=== PATIENT | male | born 1975 | race Caucasian/White ===

== ENCOUNTER → 2017-10-12 12:48 | Outpatient (CLI) | payer MEDICAID, SELFPAY ==
[2017-10-12 13:22] LABS: Basophils # 0.1 K/mm3 (0-0.2); Basophils % 0.6 % (0.1-2.0); Eosinophils # 0.4 K/mm3 (0.0-0.4); Eosinophils % 3.7 % (0.1-12.0); Hematocrit 43.8 % (42.0-52.0); Hemoglobin 14.7 g/dL (14.1-18.0); Mean Corpuscular HGB Conc 33.6 g/dL (31.8-35.4); Mean Corpuscular Hemoglobin 30.8 pg (27.0-31.2); Mean Corpuscular Volume 91.5 fl (80-94); Mean Platelet Volume 7.4 fl (7.4-10.4); Monocytes # 0.4 K/mm3 (0.1-1.0); Monocytes % 3.8 % (1.7-9.3); Neutrophils # 4.8 K/mm3 (1.8-7.8); Neutrophils % 49.9 % (37.0-80.0); Platelet Count 284 K/mm3 (142-424); Red Blood Count 4.79 M/mm3 (4.60-6.20); Red Cell Distribution Width 12.2 % (11.5-17.5); White Blood Count 9.6 K/mm3 (4.8-10.8)
[2017-10-12 13:30] LABS: Alanine Aminotransferase 58 U/L (12-78); Albumin Level 3.3 gm/dL (3.4-5.0); Albumin/Globulin Ratio 0.7 (1.1-1.8); Alkaline Phosphatase 92 U/L (46-116); Aspartate Amino Transferase 36 U/L (15-37); Bilirubin,Total 0.3 mg/dL (0.2-1.0); Blood Urea Nitrogen 17 mg/dL (7-18); Calcium 8.7 mg/dL (8.5-10.1); Carbon Dioxide 27 mmol/L (21.0-32.0); Chloride 103 mmol/L (98-107); Creatinine,Serum 0.88 mg/dL (0.70-1.30); Estimated Glomerular Filt Rate 96 ml/min (>60); GFR (African American) 116 ML/MIN (>60); Globulin 4.5 gm/dl (1.3-3.2); Glucose 89 mg/dL (74-106); Sodium 138 mmol/L (136-145); Total Protein,Serum 7.8 gm/dL (6.4-8.2)
[2017-10-13 08:24] LABS: Hep A Ab, IgM Negative (Negative); Hepatitis B Core Antibody IgM Negative (Negative); Hepatitis B Surface Antigen Negative (Negative)
[2017-10-13 15:41] LABS: HIV Screen 4th Generation wRfx Non Reactive (Non Reactive); Hepatitis C Antibody <0.1 s/co ratio (0.0-0.9)
== END ==
PROVIDERS: Visit Provider Preventive Medicine Addiction Medicine
DX: Z87.898 Personal history of other specified conditions (principal); F19.21 Other psychoactive substance dependence, in remission
CPT/HCPCS: 36415; 80053; 80074; 85025; 86703; G0432

== ENCOUNTER 2021-06-10 18:35 | Emergency (ER) | payer OTHER, SELFPAY ==
[2021-06-10 18:36] VITALS: BP 140/116; PULSE 109; RESP 20; TEMP 36.8; O2SAT 98; BMI 25.8
--- NOTE | 2021-06-10 19:10 | HMH.EDGENADL ---
ED Disposition Clinical Impression: Abscess of skin or subcutaneous tissue Qualifiers: Site of cutaneous abscess: extremity Site of cutaneous abscess of extremity: lower extremity Laterality: left Qualified Code(s): L02.416 - Cutaneous abscess of left lower limb Disposition: Home, Self-Care Condition on Discharge: Good Instructions: DI for Skin Abscess Additional Instructions: Warm compresses 3-4 times per day. Antibiotics as directed. Follow with your PCP in 2 to 3 days. Prescriptions: Sulfamethoxazole/Trimethoprim [Bactrim DS tablet] 1 each PO BID #14 tab Transmission Status: Pending to [facility] Referrals: Hernando Saleh MD [Primary Care Provider] - 3 days Time of Disposition: 19:13 - Critical Care Critical Care Time: No Attestation: On 06/10/21, the high probability of a clinically significant, sudden or life threatening deterioration of the following system(s) required my full and direct attention, intervention and personal management. The time I documented below is in addition to time spent performing reported procedures but includes the following listed in this critical care notation. Medical Decision Making - Medical Records Medical records reviewed: Yes: I reviewed the patient's medical records. - Lee Inquiry Pt receiving controlled substance: No Vital Signs: 06/10/21 18:36 Temperature 98.3 F Temperature Source Oral Pulse Rate [Right Radial] 109 H Respiratory Rate 20 Blood Pressure [Right Arm] 140/116 H Blood Pressure Mean [Right Arm] 124 Blood Pressure Source [Right Arm] Automatic Cuff Blood Pressure Position [Right Arm] Sitting 02 Sat by Pulse Oximetry 98 Oxygen Delivery Method Room Air Medical Decision Narrative: 45yo M evaluated for abscess. Treated with Bactrim in the emergency department. Offered to incise and drain in the emergency department he would prefer conservative treatment with warm compresses and follow-up with his PCP office. General Adult HPI - General Chief complaint: Skin/Abscess/Foreign Body Stated complaint: possible spider bite L leg Time Seen by Provider: 06/10/21 19:00 Mode of Arrival: Ambulatory Limitations: No Limitations Description of Symptoms (Recalled from ER Triage Doc. by RN): Pt c/o spider bite to left upper thigh x3 days - History of Present Illness HPI narrative: 45yo M presents the emergency department secondary to an abscess on his left thigh. Patient reports is been present for a few days. He reports cutting it open at home and having a large amount of purulent material expressed. He reports it still red and tender. Denies any fever or systemic signs of infection. - Related Data Previous Rx's Medication Instructions Recorded Sulfamethoxazole/Trimethoprim 1 each PO BID #14 tab 06/10/21 [Bactrim DS tablet] Allergies Allergy/AdvReac Type Severity Reaction Status Date / Time CODEINE Allergy Intermediate I-HIVES Uncoded 06/30/17 15:07 PCN (PENICILLIN) Allergy Unknown Uncoded 06/30/17 15:07 [facility] History - Hepatitis A Screen Drug use history?: No High risk sexual behaviors?: No History of sexually transmitted infection?: No Currently employed?: No Childcare worker?: No Do you have indoor plumbing?: Yes Do you have electricity?: Yes Attestation statement:: This patient has been screened for Hepatitis A risk factors. I have reviewed the patient's past medical history: Yes (Denies chronic condition) ROS Obtained: Yes All systems reviewed & no additional complaints - Integumentary/Breasts Skin/Breast: Reports as per HPI Physical Exam - General General appearance: alert, in no apparent distress - Head Head exam: atraumatic - Respiratory Respiratory exam: Present: normal lung sounds bilaterally. Absent: respiratory distress - Cardiovascular Cardiovascular exam: Present: regular rate, normal rhythm. Absent: JVD - Neurological Exam Neurological exam: Present: alert, oriented X3 - Psychiatric
[2021-06-10 19:21] VITALS: BP 138/98; PULSE 102; RESP 18; TEMP 36.9; O2SAT 98
== END 2021-06-10 19:22 | disposition home or self-care (01) ==
PROVIDERS: Emergency Provider Family Medicine; PCP Emergency Medicine
DX: L02.416 Cutaneous abscess of left lower limb (principal)
CPT/HCPCS: 99281

== ENCOUNTER 2021-06-17 09:10 | Emergency (ER) | payer OTHER, SELFPAY ==
[2021-06-17 09:11] VITALS: BP 158/109; PULSE 100; RESP 16; TEMP 37.2; O2SAT 98; BMI 25.1
[2021-06-17 09:40] VITALS: BP 158/109; PULSE 100; RESP 16; TEMP 37.2; O2SAT 98; BMI 25.2
--- NOTE | 2021-06-17 10:03 | HMH.EDUTC ---
[facility] [place] Disposition Clinical Impression: Abscess of skin or subcutaneous tissue Qualifiers: Site of cutaneous abscess: unspecified site Qualified Code(s): L02.91 - Cutaneous abscess, unspecified Disposition: Home, Self-Care Condition on Discharge: Good Instructions: Clindamycin, Mupirocin, DI for Skin Abscess Additional Instructions: *Start antibiotic(s) immediately and be sure to take as ordered for the FULL length of time although you may be feeling better or start to see improvement in the next 24-48 hours *Monitor closely. Outlined redness so that you can monitor easier. Follow up immediately for new or worsening symptoms including but not limited to redness, swelling, streaking from site fever or chills. *Warm compress of warm water and epson salt 15 minutes 3-4 times day *Never squeeze or pop these on your own. Seek immediate medical attention next time this occurs *Monitor Temp. Tylenol every 4 hours as needed and ibuprofen every 6 hours as needed (as long as your primary care doctor has told you that it is ok to take both. For fever, aches, pain. ER if no less that 101 despite Tylenol and ibuprofen Follow up with your family doctor/primary care physician in the next 48-72 hours if no improvement Eating yogurt while taking this medication may help with stomach upset Follow up with your Family Doctor if you do not have one we will provide you with a list of accepting Doctors Return if needed Straight to ER if any life threatening symptoms Make sure to Follow up to get your Wound Culture results to make sure that you are on the right medication Prescriptions: clindamycin HCL [Cleocin HCl] 300 mg PO TID 7 Days #21 cap Transmission Status: Pending to [id number] Mupirocin Calcium [Mupirocin 2% Cream 15gm] 1 applicatio TP TID 10 Days #15 gm Transmission Status: Pending to [id number] Referrals: Hernando Saleh MD [Primary Care Provider] - As needed Forms: Work/School Release Time of Disposition: 10:21 Medical Decision Making - Lee Inquiry Pt receiving controlled substance: No Lee was queried for this patient: No Vital Signs: 06/17/21 09:11 06/17/21 09:40 Temperature 98.9 F 98.9 F Temperature Source Oral Oral Pulse Rate [Radial] 100 H 100 H Respiratory Rate 16 16 Blood Pressure [Right Arm] 158/109 H 158/109 H Blood Pressure Mean [Right Arm] 125 125 Blood Pressure Source [Right Arm] Automatic Cuff Blood Pressure Position [Right Arm] Sitting 02 Sat by Pulse Oximetry 98 98 Oxygen Delivery Method Room Air Room Air Orders (Tests/Meds): ORDERS Category Date Time Status Wound Culture and Gram Stain Stat Micro 06/17/21 10:13 Ordered [facility] [place] HPI - General Stated complaint: spider bite left leg Time Seen by Provider: 06/17/21 10:03 Mode of Arrival: Ambulatory Source of Information: Patient Limitations: No Limitations Description of Symptoms (Recalled from Triage Doc. by RN): PATIENT C/O ABSCESS TO LT UPPER LEG PT STATES SEEN LAST WEEK AND GIVEN SCRIPT FOR ANTIBIOTICS PT STATES HE DID NOT FINISH COURSE BECAUSE THEY MADE HIM NAUSEATED. PT STATES SYMPTOMS HAVE IMPROVED BUT CONTINUES WITH REDNESS AND PAIN. PT ALSO STATES HE HAS NOT TAKEN HIS AM MEDS.PT DENIES ANY OTHER C/O HEENT Symptoms (Recalled from RN notes): No Resp Symptoms (Recalled from RN notes): No Skin Symptoms (Recalled from RN notes): Yes MS Symptoms (Recalled from RN notes): No Functional Status (Recalled from RN notes): WNL - History of Present Illness Provider Complaint: Patient states that he was seen last week in the ED for same complaint States that he was started on antibiotics and they have helped but he hasnt been taking them the way he should because they was tearing up his stomach States that today he came back in because it was still sore and hurting and redness is starting to get worse again so he knew he needed something else to help - Related Data Home Medications Medication Instructions Recorded Confirmed
[2021-06-17 10:26] VITALS: BP 158/109; PULSE 100; RESP 16; TEMP 37.2; O2SAT 98
== END 2021-06-17 10:29 | disposition home or self-care (01) ==
LOC: ER 09:26 → UTC 09:27
PROVIDERS: Emergency Provider Nurse Practitioner; PCP Emergency Medicine
DX: S70.362A Insect bite (nonvenomous), left thigh, initial encounter (principal); L03.116 Cellulitis of left lower limb
CPT/HCPCS: 87070; 87077; 87186; 87205; 99202; G0463

== ENCOUNTER → 2021-08-12 14:55 | Outpatient (CLI) | payer OTHER, SELFPAY ==
[2021-08-12 15:13] LABS: Alanine Aminotransferase 31 U/L (12-78); Albumin/Globulin Ratio 1.6 (1.1-1.8); Alkaline Phosphatase 92 U/L (38-126); Anion Gap 16.8 mEq/L (5-15); Aspartate Amino Transferase 38 U/L (17-59); Basophils # 0.1 K/mm3 (0-0.2); Basophils % 1.6 % (0.1-2.0); Bilirubin,Total 0.6 mg/dl (0.2-1.3); Blood Urea Nitrogen 16 mg/dl (9-20); Calcium 10.1 mg/dl (8.4-10.2); Carbon Dioxide 25 mmol/L (22.0-30.0); Chloride 105 mmol/L (98-107); Cholesterol 169 mg/dl (140-200); Eosinophils # 0.3 K/mm3 (0.0-0.4); Eosinophils % 4.3 % (0.1-12.0); Estimated Glomerular Filt Rate 92 ml/min (>60); GFR (African American) 111 ML/MIN (>60); Globulin 3.2 g/dL (1.3-3.2); Glucose 109 mg/dl (74-100); HDL Cholesterol 42 mg/dl (40-60); Hematocrit 56.3 % (42.0-52.0); Lymphocytes # 2.4 K/mm3 (0.7-4.5); Lymphocytes % 34.3 % (10-50); Mean Corpuscular HGB Conc 32.6 g/dL (31.8-35.4); Mean Corpuscular Hemoglobin 30.9 pg (27.0-31.2); Mean Corpuscular Volume 94.5 fl (80-94); Mean Platelet Volume 9.4 fl (7.4-10.4); Monocytes # 0.5 K/mm3 (0.1-1.0); Monocytes % 6.8 % (1.7-9.3); Neutrophils # 3.8 K/mm3 (1.8-7.8); Platelet Count 364 K/mm3 (142-424); Potassium 3.8 mmoL/L (3.5-5.1); Red Blood Count 5.95 M/mm3 (4.60-6.20); Red Cell Distribution Width 13.1 % (11.5-17.5); Sodium 143 mmol/L (136-145); Total Protein,Serum 8.2 g/dl (6.3-8.2); Triglycerides 159 mg/dl (30-150); VLDL Cholesterol 32 mg/dL (0-40); White Blood Count 7.1 K/mm3 (4.8-10.8)
[2021-08-12 15:24] LABS: Direct LDL Cholesterol 101.51 mg/dL (100-129)
[2021-08-12 15:30] LABS: Free T4 (Free Thyroxine) 1.19 ng/dl (0.78-2.19)
[2021-08-12 15:31] LABS: 25-OH Vitamin D, Total 47.6 ng/mL (30-100)
[2021-08-12 15:42] LABS: Amphetamine/Metha Screen,Urine Positive ng/ml (<1000)
[2021-08-12 15:43] LABS: Barbiturates Screen,Urine Negative ng/ml (<200)
[2021-08-12 15:44] LABS: Benzodiazepines Screen,Urine Negative ng/ml (<200); Cannabinoid Screen,Urine Negative ng/ml (<50)
[2021-08-12 15:45] LABS: Cocaine Screen,Urine Negative ng/ml (<300); Methadone Screen,Urine Negative ng/ml (<300)
[2021-08-12 15:46] LABS: Opiate Screen,Urine Negative ng/ml (<300); Thyroid Stimulating Hormone 0.71 uIU/mL (0.465-4.68)
[2021-08-12 15:47] LABS: Phencyclidine Screen,Urine Negative ng/ml (<25)
[2021-08-12 17:15] LABS: Hemoglobin 18.4 g/dL (14.1-18.0)
== END ==
PROVIDERS: Visit Provider Emergency Medicine
DX: I10 Essential (primary) hypertension (principal); F90.9 Attention-deficit hyperactivity disorder, unspecified type; E55.9 Vitamin D deficiency, unspecified
CPT/HCPCS: 80053; 80061; 80305; 82306; 84439; 84443; 85025; 87522; 87902

== ENCOUNTER → 2021-08-20 16:11 | Outpatient (CLI) | payer OTHER, SELFPAY | PROVIDERS: Visit Provider Nurse Practitioner | DX: Z20.822 Contact with and (suspected) exposure to COVID-19 (principal) | CPT/HCPCS: C9803; U0003; U0005 ==

== ENCOUNTER → 2021-09-09 16:00 | Outpatient (CLI) | payer OTHER, SELFPAY ==
[2021-09-09 14:46] LABS: Barbiturates Screen,Urine Negative ng/ml (<200)
[2021-09-09 14:47] LABS: Benzodiazepines Screen,Urine Negative ng/ml (<200)
[2021-09-09 14:48] LABS: Cannabinoid Screen,Urine Negative ng/ml (<50); Cocaine Screen,Urine Negative ng/ml (<300)
[2021-09-09 14:49] LABS: Methadone Screen,Urine Negative ng/ml (<300)
[2021-09-09 14:51] LABS: Opiate Screen,Urine Negative ng/ml (<300)
[2021-09-09 14:52] LABS: Phencyclidine Screen,Urine Negative ng/ml (<25)
[2021-09-09 15:04] LABS: Amphetamine/Metha Screen,Urine Positive ng/ml (<1000)
== END ==
PROVIDERS: Visit Provider Emergency Medicine
DX: Z79.899 Other long term (current) drug therapy (principal)
CPT/HCPCS: 80305

== ENCOUNTER → 2021-11-18 11:40 | Outpatient (CLI) | payer OTHER, SELFPAY ==
[2021-11-18 13:39] LABS: Barbiturates Screen,Urine Negative ng/ml (<200); Benzodiazepines Screen,Urine Negative ng/ml (<200)
[2021-11-18 13:40] LABS: Amphetamine/Metha Screen,Urine Positive ng/ml (<1000); Methadone Screen,Urine Negative ng/ml (<300)
[2021-11-18 13:41] LABS: Cannabinoid Screen,Urine Negative ng/ml (<50)
[2021-11-18 13:42] LABS: Cocaine Screen,Urine Negative ng/ml (<300); Opiate Screen,Urine Negative ng/ml (<300)
[2021-11-18 13:43] LABS: Phencyclidine Screen,Urine Negative ng/ml (<25)
== END ==
PROVIDERS: PCP Emergency Medicine; Visit Provider Emergency Medicine
DX: I10 Essential (primary) hypertension (principal); F90.9 Attention-deficit hyperactivity disorder, unspecified type; L02.91 Cutaneous abscess, unspecified; M79.604 Pain in right leg
CPT/HCPCS: 80305; 87070; 87077; 87186; 87205

== ENCOUNTER → 2021-11-20 15:46 | Outpatient (CLI) | payer OTHER, SELFPAY ==
--- NOTE | 2021-11-20 15:54 | XR_ITS ---
FINAL REPORT CLINICAL HISTORY: leg pain. no recent trauma FINDINGS: RIGHT TIBIA FIBULA 2 views were obtained. There is no acute fracture or dislocation. There are chronic fractures of the tibia and fibula with an intramedullary trisha in the tibia. The visualized joint spaces are intact. There is no soft tissue abnormality. IMPRESSION: No acute bony abnormality. Reviewed, Interpreted and Dictated by Espinoza Angulo III, MD Transcribed by Yelena Garcia Authenticated by Espinoza Angulo III, MD on 11/20/2021 04:36:53 PM [facility]
== END ==
PROVIDERS: PCP Family Medicine; Visit Provider Emergency Medicine
DX: M79.604 Pain in right leg (principal)
CPT/HCPCS: 73590

== ENCOUNTER → 2022-01-15 13:54 | Outpatient (CLI) | payer OTHER, SELFPAY ==
[2022-01-15 13:29] LABS: Benzodiazepines Screen,Urine Negative ng/ml (<200)
[2022-01-15 13:30] LABS: Amphetamine/Metha Screen,Urine Positive ng/ml (<1000)
[2022-01-15 13:31] LABS: Barbiturates Screen,Urine Negative ng/ml (<200); Cannabinoid Screen,Urine Positive ng/ml (<50)
[2022-01-15 13:32] LABS: Cocaine Screen,Urine Negative ng/ml (<300)
[2022-01-15 13:33] LABS: Methadone Screen,Urine Negative ng/ml (<300); Opiate Screen,Urine Negative ng/ml (<300)
[2022-01-15 13:34] LABS: Phencyclidine Screen,Urine Negative ng/ml (<25)
== END ==
PROVIDERS: PCP Emergency Medicine; Visit Provider Emergency Medicine
DX: Z79.899 Other long term (current) drug therapy (principal)
CPT/HCPCS: 80305

== ENCOUNTER → 2022-01-25 08:24 | Outpatient (CLI) | payer OTHER, SELFPAY ==
[2022-01-24 18:46] LABS: Amphetamine/Metha Screen,Urine Negative ng/ml (<1000)
[2022-01-24 18:47] LABS: Barbiturates Screen,Urine Negative ng/ml (<200); Benzodiazepines Screen,Urine Negative ng/ml (<200)
[2022-01-24 18:48] LABS: Cannabinoid Screen,Urine Negative ng/ml (<50)
[2022-01-24 18:49] LABS: Cocaine Screen,Urine Negative ng/ml (<300); Methadone Screen,Urine Negative ng/ml (<300)
[2022-01-24 18:51] LABS: Opiate Screen,Urine Negative ng/ml (<300)
[2022-01-24 18:52] LABS: Phencyclidine Screen,Urine Negative ng/ml (<25)
== END ==
PROVIDERS: PCP Emergency Medicine; Visit Provider Emergency Medicine
DX: R82.5 Elevated urine levels of drugs, medicaments and biological substances (principal)
CPT/HCPCS: 80305

== ENCOUNTER → 2022-02-01 12:23 | Outpatient (CLI) | payer OTHER, SELFPAY ==
[2022-01-31 17:51] LABS: Barbiturates Screen,Urine Negative ng/ml (<200)
[2022-01-31 17:52] LABS: Amphetamine/Metha Screen,Urine Negative ng/ml (<1000); Benzodiazepines Screen,Urine Negative ng/ml (<200)
[2022-01-31 17:53] LABS: Methadone Screen,Urine Negative ng/ml (<300)
[2022-01-31 17:54] LABS: Cannabinoid Screen,Urine Negative ng/ml (<50); Cocaine Screen,Urine Negative ng/ml (<300)
[2022-01-31 17:55] LABS: Opiate Screen,Urine Negative ng/ml (<300); Phencyclidine Screen,Urine Negative ng/ml (<25)
== END ==
PROVIDERS: PCP Emergency Medicine; Visit Provider Emergency Medicine
DX: F90.9 Attention-deficit hyperactivity disorder, unspecified type (principal); Z79.899 Other long term (current) drug therapy
CPT/HCPCS: 80305

== ENCOUNTER → 2022-02-14 13:49 | Outpatient (CLI) | payer OTHER, SELFPAY ==
[2022-02-17 12:33] LABS: Amphetamine/Metha Screen,Urine Negative ng/ml (<1000); Benzodiazepines Screen,Urine Negative ng/ml (<200)
[2022-02-17 12:34] LABS: Barbiturates Screen,Urine Negative ng/ml (<200); Cannabinoid Screen,Urine Negative ng/ml (<50)
[2022-02-17 12:35] LABS: Cocaine Screen,Urine Negative ng/ml (<300)
[2022-02-17 12:36] LABS: Methadone Screen,Urine Negative ng/ml (<300); Opiate Screen,Urine Negative ng/ml (<300)
[2022-02-17 12:37] LABS: Phencyclidine Screen,Urine Negative ng/ml (<25)
== END ==
PROVIDERS: PCP Emergency Medicine; Visit Provider Nurse Practitioner Family
DX: F11.20 Opioid dependence, uncomplicated (principal)
CPT/HCPCS: 80305

== ENCOUNTER → 2022-02-21 13:51 | Outpatient (CLI) | payer OTHER, SELFPAY ==
[2022-02-21 16:26] LABS: Amphetamine/Metha Screen,Urine Negative ng/ml (<1000)
[2022-02-21 16:27] LABS: Barbiturates Screen,Urine Negative ng/ml (<200); Benzodiazepines Screen,Urine Negative ng/ml (<200)
[2022-02-21 16:28] LABS: Cannabinoid Screen,Urine Negative ng/ml (<50)
[2022-02-21 16:29] LABS: Cocaine Screen,Urine Negative ng/ml (<300); Methadone Screen,Urine Negative ng/ml (<300)
[2022-02-21 16:30] LABS: Opiate Screen,Urine Negative ng/ml (<300); Phencyclidine Screen,Urine Negative ng/ml (<25)
== END ==
PROVIDERS: Nurse Practitioner Family; PCP Emergency Medicine; Visit Provider Nurse Practitioner Family
DX: F11.20 Opioid dependence, uncomplicated (principal); F12.10 Cannabis abuse, uncomplicated; B19.20 Unspecified viral hepatitis C without hepatic coma; I10 Essential (primary) hypertension; F90.9 Attention-deficit hyperactivity disorder, unspecified type; Z87.820 Personal history of traumatic brain injury
CPT/HCPCS: 80305

== ENCOUNTER → 2022-03-01 10:01 | Outpatient (CLI) | payer OTHER, SELFPAY ==
[2022-03-01 10:30] LABS: Barbiturates Screen,Urine Negative ng/ml (<200)
[2022-03-01 10:31] LABS: Benzodiazepines Screen,Urine Negative ng/ml (<200)
[2022-03-01 10:32] LABS: Amphetamine/Metha Screen,Urine Negative ng/ml (<1000); Methadone Screen,Urine Negative ng/ml (<300)
[2022-03-01 10:33] LABS: Cannabinoid Screen,Urine Negative ng/ml (<50)
[2022-03-01 10:34] LABS: Cocaine Screen,Urine Negative ng/ml (<300); Opiate Screen,Urine Negative ng/ml (<300)
[2022-03-01 10:35] LABS: Phencyclidine Screen,Urine Negative ng/ml (<25)
== END ==
PROVIDERS: PCP Emergency Medicine; Visit Provider Nurse Practitioner Family
DX: F11.20 Opioid dependence, uncomplicated (principal)
CPT/HCPCS: 80305

== ENCOUNTER → 2022-03-08 11:36 | Outpatient (CLI) | payer OTHER, SELFPAY ==
[2022-03-08 12:22] LABS: Barbiturates Screen,Urine Negative ng/ml (<200)
[2022-03-08 12:23] LABS: Benzodiazepines Screen,Urine Negative ng/ml (<200)
[2022-03-08 12:24] LABS: Amphetamine/Metha Screen,Urine Positive ng/ml (<1000); Cannabinoid Screen,Urine Negative ng/ml (<50)
[2022-03-08 12:25] LABS: Cocaine Screen,Urine Positive ng/ml (<300)
[2022-03-08 12:26] LABS: Methadone Screen,Urine Negative ng/ml (<300); Opiate Screen,Urine Negative ng/ml (<300)
[2022-03-08 12:27] LABS: Phencyclidine Screen,Urine Negative ng/ml (<25)
== END ==
PROVIDERS: PCP Emergency Medicine; Visit Provider Nurse Practitioner Family
DX: F12.10 Cannabis abuse, uncomplicated (principal); B19.20 Unspecified viral hepatitis C without hepatic coma; I10 Essential (primary) hypertension; F90.9 Attention-deficit hyperactivity disorder, unspecified type; Z87.820 Personal history of traumatic brain injury
CPT/HCPCS: 80305

== ENCOUNTER → 2022-03-15 11:30 | Outpatient (CLI) | payer OTHER, SELFPAY ==
[2022-03-15 12:03] LABS: Amphetamine/Metha Screen,Urine Negative ng/ml (<1000); Barbiturates Screen,Urine Negative ng/ml (<200)
[2022-03-15 12:04] LABS: Benzodiazepines Screen,Urine Negative ng/ml (<200)
[2022-03-15 12:05] LABS: Cannabinoid Screen,Urine Positive ng/ml (<50); Cocaine Screen,Urine Negative ng/ml (<300)
[2022-03-15 12:06] LABS: Methadone Screen,Urine Negative ng/ml (<300)
[2022-03-15 12:07] LABS: Opiate Screen,Urine Negative ng/ml (<300); Phencyclidine Screen,Urine Negative ng/ml (<25)
== END ==
PROVIDERS: PCP Emergency Medicine; Visit Provider Nurse Practitioner Family
DX: F12.20 Cannabis dependence, uncomplicated (principal)
CPT/HCPCS: 80305

== ENCOUNTER → 2022-03-26 10:10 | Outpatient (CLI) | payer OTHER, SELFPAY | PROVIDERS: PCP Emergency Medicine; Visit Provider Nurse Practitioner Family | DX: F11.20 Opioid dependence, uncomplicated (principal) ==

== ENCOUNTER → 2022-05-16 08:50 | Outpatient (CLI) | payer OTHER, SELFPAY ==
[2022-05-16 10:32] LABS: Amphetamine/Metha Screen,Urine Negative ng/ml (<1000)
[2022-05-16 10:33] LABS: Barbiturates Screen,Urine Negative ng/ml (<200); Benzodiazepines Screen,Urine Negative ng/ml (<200)
[2022-05-16 10:35] LABS: Cannabinoid Screen,Urine Negative ng/ml (<50)
[2022-05-16 10:36] LABS: Cocaine Screen,Urine Negative ng/ml (<300)
[2022-05-16 10:37] LABS: Methadone Screen,Urine Negative ng/ml (<300); Opiate Screen,Urine Negative ng/ml (<300)
[2022-05-16 10:38] LABS: Phencyclidine Screen,Urine Negative ng/ml (<25)
== END ==
PROVIDERS: PCP Emergency Medicine; Visit Provider Nurse Practitioner Family
DX: F11.20 Opioid dependence, uncomplicated (principal); F12.10 Cannabis abuse, uncomplicated
CPT/HCPCS: 80305

== ENCOUNTER → 2022-05-23 12:36 | Outpatient (CLI) | payer OTHER, SELFPAY ==
[2022-05-23 13:14] LABS: Amphetamine/Metha Screen,Urine Negative ng/ml (<1000)
[2022-05-23 13:15] LABS: Barbiturates Screen,Urine Negative ng/ml (<200); Benzodiazepines Screen,Urine Negative ng/ml (<200)
[2022-05-23 13:16] LABS: Cannabinoid Screen,Urine Negative ng/ml (<50); Cocaine Screen,Urine Negative ng/ml (<300)
[2022-05-23 13:17] LABS: Methadone Screen,Urine Negative ng/ml (<300)
[2022-05-23 13:18] LABS: Opiate Screen,Urine Negative ng/ml (<300); Phencyclidine Screen,Urine Negative ng/ml (<25)
== END ==
PROVIDERS: PCP Emergency Medicine; Visit Provider Nurse Practitioner Family
DX: F12.10 Cannabis abuse, uncomplicated (principal)
CPT/HCPCS: 80305

== ENCOUNTER → 2022-06-02 11:35 | Outpatient (CLI) | payer OTHER, SELFPAY ==
[2022-06-02 12:49] LABS: Benzodiazepines Screen,Urine Negative ng/ml (<200)
[2022-06-02 12:50] LABS: Barbiturates Screen,Urine Negative ng/ml (<200)
[2022-06-02 12:51] LABS: Cannabinoid Screen,Urine Negative ng/ml (<50); Methadone Screen,Urine Negative ng/ml (<300)
[2022-06-02 12:52] LABS: Cocaine Screen,Urine Negative ng/ml (<300)
[2022-06-02 12:53] LABS: Opiate Screen,Urine Negative ng/ml (<300); Phencyclidine Screen,Urine Negative ng/ml (<25)
[2022-06-12 12:49] LABS: Amphetamine Positive (.); Amphetamine (GC/MS) >3000 ng/mL (Cutoff=500); Amphetamines Positive (.); Methamphetamine Positive (.); Methamphetamine (GC/MS) >3000 ng/mL (Cutoff=500)
== END ==
PROVIDERS: PCP Emergency Medicine; Visit Provider Nurse Practitioner Family
DX: F11.20 Opioid dependence, uncomplicated (principal)
CPT/HCPCS: 80305; 80324

== ENCOUNTER → 2022-06-09 17:07 | Outpatient (CLI) | payer OTHER, SELFPAY ==
[2022-06-09 18:33] LABS: Amphetamine/Metha Screen,Urine Positive ng/ml (<1000); Barbiturates Screen,Urine Negative ng/ml (<200)
[2022-06-09 18:34] LABS: Benzodiazepines Screen,Urine Negative ng/ml (<200)
[2022-06-09 18:35] LABS: Cannabinoid Screen,Urine Negative ng/ml (<50); Cocaine Screen,Urine Negative ng/ml (<300)
[2022-06-09 18:36] LABS: Methadone Screen,Urine Negative ng/ml (<300); Opiate Screen,Urine Negative ng/ml (<300)
[2022-06-09 18:37] LABS: Phencyclidine Screen,Urine Negative ng/ml (<25)
== END ==
PROVIDERS: Nurse Practitioner Family; PCP Emergency Medicine; Visit Provider Nurse Practitioner Family
DX: F12.10 Cannabis abuse, uncomplicated (principal)
CPT/HCPCS: 80305

== ENCOUNTER → 2022-06-16 13:40 | Outpatient (CLI) | payer OTHER, SELFPAY ==
[2022-06-16 15:01] LABS: Amphetamine/Metha Screen,Urine Positive ng/ml (<1000); Barbiturates Screen,Urine Negative ng/ml (<200)
[2022-06-16 15:02] LABS: Benzodiazepines Screen,Urine Negative ng/ml (<200)
[2022-06-16 15:03] LABS: Cannabinoid Screen,Urine Negative ng/ml (<50); Cocaine Screen,Urine Negative ng/ml (<300)
[2022-06-16 15:04] LABS: Methadone Screen,Urine Negative ng/ml (<300); Opiate Screen,Urine Negative ng/ml (<300)
[2022-06-16 15:05] LABS: Phencyclidine Screen,Urine Negative ng/ml (<25)
== END ==
PROVIDERS: Nurse Practitioner Family; PCP Emergency Medicine; Visit Provider Nurse Practitioner Family
DX: F11.20 Opioid dependence, uncomplicated (principal); F12.10 Cannabis abuse, uncomplicated
CPT/HCPCS: 80305

== ENCOUNTER → 2022-06-28 12:51 | Outpatient (CLI) | payer OTHER, SELFPAY ==
[2022-06-28 13:48] LABS: Amphetamine/Metha Screen,Urine Positive ng/ml (<1000)
[2022-06-28 13:49] LABS: Barbiturates Screen,Urine Negative ng/ml (<200)
[2022-06-28 13:50] LABS: Benzodiazepines Screen,Urine Negative ng/ml (<200); Cannabinoid Screen,Urine Negative ng/ml (<50)
[2022-06-28 13:53] LABS: Phencyclidine Screen,Urine Negative ng/ml (<25)
[2022-06-28 14:37] LABS: Methadone Screen,Urine Negative ng/ml (<300)
[2022-06-28 14:38] LABS: Opiate Screen,Urine Negative ng/ml (<300)
[2022-06-28 17:14] LABS: Cocaine Screen,Urine Negative ng/ml (<300)
== END ==
PROVIDERS: PCP Emergency Medicine; Visit Provider Nurse Practitioner Family
DX: F11.20 Opioid dependence, uncomplicated (principal); F12.10 Cannabis abuse, uncomplicated; F90.9 Attention-deficit hyperactivity disorder, unspecified type; B19.20 Unspecified viral hepatitis C without hepatic coma; I10 Essential (primary) hypertension; Z87.820 Personal history of traumatic brain injury
CPT/HCPCS: 80305

== ENCOUNTER → 2022-07-08 12:22 | Outpatient (CLI) | payer OTHER, SELFPAY ==
[2022-07-08 13:18] LABS: Barbiturates Screen,Urine Negative ng/ml (<200); Benzodiazepines Screen,Urine Negative ng/ml (<200)
[2022-07-08 13:19] LABS: Amphetamine/Metha Screen,Urine Positive ng/ml (<1000)
[2022-07-08 13:20] LABS: Cannabinoid Screen,Urine Negative ng/ml (<50); Methadone Screen,Urine Negative ng/ml (<300)
[2022-07-08 13:21] LABS: Cocaine Screen,Urine Negative ng/ml (<300)
[2022-07-08 13:22] LABS: Opiate Screen,Urine Negative ng/ml (<300)
[2022-07-08 13:23] LABS: Phencyclidine Screen,Urine Negative ng/ml (<25)
== END ==
PROVIDERS: PCP Emergency Medicine; Visit Provider Nurse Practitioner Family
DX: F11.20 Opioid dependence, uncomplicated (principal); F12.10 Cannabis abuse, uncomplicated
CPT/HCPCS: 80305

== ENCOUNTER → 2022-07-19 12:53 | Outpatient (CLI) | payer OTHER, SELFPAY ==
[2022-07-19 14:59] LABS: Barbiturates Screen,Urine Negative ng/ml (<200); Benzodiazepines Screen,Urine Negative ng/ml (<200)
[2022-07-19 15:00] LABS: Amphetamine/Metha Screen,Urine Negative ng/ml (<1000)
[2022-07-19 15:01] LABS: Cannabinoid Screen,Urine Negative ng/ml (<50); Cocaine Screen,Urine Negative ng/ml (<300)
[2022-07-19 15:02] LABS: Methadone Screen,Urine Negative ng/ml (<300)
[2022-07-19 15:03] LABS: Opiate Screen,Urine Negative ng/ml (<300); Phencyclidine Screen,Urine Negative ng/ml (<25)
== END ==
PROVIDERS: PCP Emergency Medicine; Visit Provider Nurse Practitioner Family
DX: F11.20 Opioid dependence, uncomplicated (principal); F12.10 Cannabis abuse, uncomplicated
CPT/HCPCS: 80305

== ENCOUNTER → 2022-07-31 15:06 | Outpatient (CLI) | payer OTHER, SELFPAY ==
[2022-07-31 15:51] LABS: Barbiturates Screen,Urine Negative ng/ml (<200)
[2022-07-31 15:52] LABS: Amphetamine/Metha Screen,Urine Negative ng/ml (<1000); Benzodiazepines Screen,Urine Negative ng/ml (<200)
[2022-07-31 15:53] LABS: Cannabinoid Screen,Urine Negative ng/ml (<50); Methadone Screen,Urine Negative ng/ml (<300)
[2022-07-31 15:54] LABS: Cocaine Screen,Urine Negative ng/ml (<300)
[2022-07-31 15:55] LABS: Opiate Screen,Urine Negative ng/ml (<300); Phencyclidine Screen,Urine Negative ng/ml (<25)
== END ==
PROVIDERS: Nurse Practitioner Family; PCP Emergency Medicine; Visit Provider Nurse Practitioner Family
DX: F11.20 Opioid dependence, uncomplicated (principal); F12.10 Cannabis abuse, uncomplicated
CPT/HCPCS: 80305

== ENCOUNTER → 2022-08-15 14:42 | Outpatient (CLI) | payer OTHER, SELFPAY ==
[2022-08-15 16:54] LABS: Barbiturates Screen,Urine Negative ng/ml (<200); Benzodiazepines Screen,Urine Negative ng/ml (<200)
[2022-08-15 16:57] LABS: Cannabinoid Screen,Urine Negative ng/ml (<50)
[2022-08-15 16:58] LABS: Cocaine Screen,Urine Negative ng/ml (<300)
[2022-08-15 16:59] LABS: Methadone Screen,Urine Negative ng/ml (<300); Opiate Screen,Urine Negative ng/ml (<300)
[2022-08-15 17:00] LABS: Phencyclidine Screen,Urine Negative ng/ml (<25)
[2022-08-25 13:23] LABS: Amphetamine Positive (.); Amphetamine (GC/MS) >3000 ng/mL (Cutoff=500); Amphetamines Positive (.); Methamphetamine Negative (Cutoff=500)
== END ==
PROVIDERS: PCP Emergency Medicine; Visit Provider Nurse Practitioner Family
DX: F11.20 Opioid dependence, uncomplicated (principal)
CPT/HCPCS: 80305; 80324

== ENCOUNTER → 2022-08-23 12:52 | Outpatient (CLI) | payer OTHER, SELFPAY ==
[2022-08-23 13:50] LABS: Amphetamine/Metha Screen,Urine Positive ng/ml (<1000); Barbiturates Screen,Urine Negative ng/ml (<200); Benzodiazepines Screen,Urine Negative ng/ml (<200); Cannabinoid Screen,Urine Negative ng/ml (<50); Cocaine Screen,Urine Negative ng/ml (<300); Methadone Screen,Urine Negative ng/ml (<300); Opiate Screen,Urine Negative ng/ml (<300); Phencyclidine Screen,Urine Negative ng/ml (<25)
== END ==
PROVIDERS: PCP Emergency Medicine; Visit Provider Nurse Practitioner Family
DX: F11.20 Opioid dependence, uncomplicated (principal); F12.10 Cannabis abuse, uncomplicated; B19.20 Unspecified viral hepatitis C without hepatic coma; I10 Essential (primary) hypertension; F90.9 Attention-deficit hyperactivity disorder, unspecified type; Z87.820 Personal history of traumatic brain injury
CPT/HCPCS: 80305

== ENCOUNTER → 2022-09-01 12:01 | Outpatient (CLI) | payer OTHER, SELFPAY ==
[2022-09-01 13:08] LABS: Amphetamine/Metha Screen,Urine Positive ng/ml (<1000); Barbiturates Screen,Urine Negative ng/ml (<200)
[2022-09-01 13:09] LABS: Benzodiazepines Screen,Urine Negative ng/ml (<200)
[2022-09-01 13:10] LABS: Cannabinoid Screen,Urine Negative ng/ml (<50)
[2022-09-01 13:11] LABS: Cocaine Screen,Urine Negative ng/ml (<300)
[2022-09-01 13:12] LABS: Methadone Screen,Urine Negative ng/ml (<300); Opiate Screen,Urine Negative ng/ml (<300)
[2022-09-01 13:13] LABS: Phencyclidine Screen,Urine Negative ng/ml (<25)
== END ==
PROVIDERS: PCP Emergency Medicine; Visit Provider Nurse Practitioner Family
DX: F11.20 Opioid dependence, uncomplicated (principal); F12.10 Cannabis abuse, uncomplicated; B19.20 Unspecified viral hepatitis C without hepatic coma; I10 Essential (primary) hypertension; F90.9 Attention-deficit hyperactivity disorder, unspecified type; Z87.820 Personal history of traumatic brain injury
CPT/HCPCS: 80305

== ENCOUNTER → 2022-09-12 23:34 | Outpatient (CLI) | payer OTHER, SELFPAY ==
[2022-09-12 19:11] LABS: Barbiturates Screen,Urine Negative ng/ml (<200)
[2022-09-12 19:13] LABS: Benzodiazepines Screen,Urine Negative ng/ml (<200); Cannabinoid Screen,Urine Negative ng/ml (<50)
[2022-09-12 19:14] LABS: Cocaine Screen,Urine Positive ng/ml (<300)
[2022-09-12 19:15] LABS: Methadone Screen,Urine Negative ng/ml (<300); Opiate Screen,Urine Negative ng/ml (<300)
[2022-09-12 19:16] LABS: Phencyclidine Screen,Urine Negative ng/ml (<25)
[2022-09-21 16:08] LABS: Amphetamine Positive (.); Amphetamine (GC/MS) 1680 ng/mL (Cutoff=500); Amphetamines Positive (.); Methamphetamine Positive (.); Methamphetamine (GC/MS) >3000 ng/mL (Cutoff=500)
== END ==
PROVIDERS: PCP Emergency Medicine; Visit Provider Emergency Medicine
DX: Z79.899 Other long term (current) drug therapy (principal)
CPT/HCPCS: 80305; 80324

== ENCOUNTER → 2023-01-06 13:30 | Outpatient (CLI) | payer OTHER, SELFPAY ==
[2023-01-06 18:38] LABS: Basophils # 0.1 K/mm3 (0-0.2); Basophils % 0.6 % (0.1-2.0); Eosinophils # 0.5 K/mm3 (0.0-0.4); Eosinophils % 6.5 % (0.1-12.0); Hematocrit 51.1 % (42.0-52.0); Hemoglobin 16.7 g/dL (14.1-18.0); Lymphocytes # 2.8 K/mm3 (0.7-4.5); Lymphocytes % 33.3 % (10-50); Mean Corpuscular HGB Conc 32.6 g/dL (31.8-35.4); Mean Corpuscular Volume 95.1 fl (80-94); Mean Platelet Volume 9.4 fl (7.4-10.4); Monocytes # 0.5 K/mm3 (0.1-1.0); Monocytes % 5.7 % (1.7-9.3); Neutrophils # 4.5 K/mm3 (1.8-7.8); Neutrophils % 53.9 % (37.0-80.0); Platelet Count 348 K/mm3 (142-424); Red Blood Count 5.38 M/mm3 (4.60-6.20); Red Cell Distribution Width 12.7 % (11.5-17.5); White Blood Count 8.3 K/mm3 (4.8-10.8)
[2023-01-06 18:47] LABS: Alanine Aminotransferase 33 U/L (12-78); Albumin Level 4.5 g/dl (3.5-5.0); Albumin/Globulin Ratio 1.6 (1.1-1.8); Alkaline Phosphatase 102 U/L (38-126); Anion Gap 17.9 mEq/L (5-15); Aspartate Amino Transferase 46 U/L (17-59); Bilirubin,Total 0.8 mg/dl (0.2-1.3); Blood Urea Nitrogen 17 mg/dl (9-20); Calcium 8.8 mg/dl (8.4-10.2); Carbon Dioxide 25 mmol/L (22.0-30.0); Chloride 102 mmol/L (98-107); Chol/HDL Ratio 3.2 (1-3.5); Cholesterol 156 mg/dl (140-200); Estimated Glomerular Filt Rate 81 ml/min (>60); GFR (African American) 98 ML/MIN (>60); Globulin 2.9 g/dL (1.3-3.2); Glucose 121 mg/dl (74-100); HDL Cholesterol 49 mg/dl (40-60); Potassium 3.9 mmoL/L (3.5-5.1); Sodium 141 mmol/L (136-145); Total Protein,Serum 7.4 g/dl (6.3-8.2); Triglycerides 173 mg/dl (30-150); VLDL Cholesterol 35 mg/dL (0-40)
[2023-01-06 19:07] LABS: T4 (Thyroxine) 5.1 ug/dl (5.53-11.0)
[2023-01-06 19:08] LABS: 25-OH Vitamin D, Total 60.3 ng/mL (30-100)
[2023-01-06 20:28] LABS: Amphetamine/Metha Screen,Urine Negative ng/ml (<1000)
[2023-01-06 20:29] LABS: Barbiturates Screen,Urine Negative ng/ml (<200)
[2023-01-06 20:30] LABS: Benzodiazepines Screen,Urine Negative ng/ml (<200)
[2023-01-06 20:32] LABS: Cannabinoid Screen,Urine Negative ng/ml (<50)
[2023-01-06 20:33] LABS: Cocaine Screen,Urine Negative ng/ml (<300); Methadone Screen,Urine Negative ng/ml (<300)
[2023-01-06 20:38] LABS: Opiate Screen,Urine Negative ng/ml (<300)
[2023-01-06 20:39] LABS: Phencyclidine Screen,Urine Negative ng/ml (<25)
== END ==
PROVIDERS: PCP Emergency Medicine; Visit Provider Emergency Medicine
DX: F90.9 Attention-deficit hyperactivity disorder, unspecified type (principal); I10 Essential (primary) hypertension; R53.83 Other fatigue
CPT/HCPCS: 80053; 80061; 80305; 82306; 84436; 84443; 85025

== ENCOUNTER → 2023-01-16 13:50 | Outpatient (CLI) | payer OTHER, SELFPAY ==
[2023-01-16 19:55] LABS: Benzodiazepines Screen,Urine Negative ng/ml (<200)
[2023-01-16 19:56] LABS: Cannabinoid Screen,Urine Negative ng/ml (<50)
[2023-01-16 19:57] LABS: Cocaine Screen,Urine Negative ng/ml (<300)
[2023-01-16 20:21] LABS: Amphetamine/Metha Screen,Urine Positive ng/ml (<1000); Methadone Screen,Urine Negative ng/ml (<300)
[2023-01-16 20:23] LABS: Opiate Screen,Urine Negative ng/ml (<300)
[2023-01-16 22:13] LABS: Phencyclidine Screen,Urine Negative ng/ml (<25)
[2023-01-16 22:16] LABS: Barbiturates Screen,Urine Negative ng/ml (<200)
== END ==
PROVIDERS: PCP Emergency Medicine; Visit Provider Emergency Medicine
DX: F90.9 Attention-deficit hyperactivity disorder, unspecified type (principal)
CPT/HCPCS: 80305

== ENCOUNTER → 2023-02-10 15:39 | Outpatient (CLI) | payer OTHER, SELFPAY ==
[2023-02-10 14:21] LABS: Barbiturates Screen,Urine Negative ng/ml (<200)
[2023-02-10 14:24] LABS: Cannabinoid Screen,Urine Negative ng/ml (<50)
[2023-02-10 14:26] LABS: Methadone Screen,Urine Negative ng/ml (<300); Opiate Screen,Urine Negative ng/ml (<300)
[2023-02-10 14:27] LABS: Phencyclidine Screen,Urine Negative ng/ml (<25)
[2023-02-10 18:31] LABS: Benzodiazepines Screen,Urine Negative ng/ml (<200)
[2023-02-10 19:28] LABS: Cocaine Screen,Urine Negative ng/ml (<300)
[2023-02-18 17:56] LABS: Amphetamine Positive (.); Amphetamine (GC/MS) >3000 ng/mL (Cutoff=500); Amphetamines Positive (.); Methamphetamine Positive (.); Methamphetamine (GC/MS) >3000 ng/mL (Cutoff=500)
== END ==
PROVIDERS: PCP Emergency Medicine; Visit Provider Emergency Medicine
DX: F90.9 Attention-deficit hyperactivity disorder, unspecified type (principal)
CPT/HCPCS: 80305; 80324

== ENCOUNTER 2023-03-04 21:06 | Emergency (ER) | payer OTHER, SELFPAY ==
[2023-03-04 22:16] VITALS: BP 143/101; PULSE 95; RESP 18; TEMP 36.8; O2SAT 99; BMI 24.3
[2023-03-04 22:27] VITALS: BP 00/0; PULSE 0; RESP 0; TEMP -17.7; TEMP 0
== END 2023-03-04 22:27 | disposition left against medical advice (07) ==
PROVIDERS: Emergency Provider Emergency Medicine; PCP Emergency Medicine
DX: Z53.21 Procedure and treatment not carried out due to patient leaving prior to being seen by health care provider (principal)
CPT/HCPCS: 99211

== ENCOUNTER 2023-07-29 18:13 | Outpatient (CLI) | payer OTHER, SELFPAY ==
[2023-07-29 19:28] LABS: Barbiturates Screen,Urine Negative ng/ml (<200); Benzodiazepines Screen,Urine Negative ng/ml (<200)
[2023-07-29 19:29] LABS: Cannabinoid Screen,Urine Negative ng/ml (<50)
[2023-07-29 19:33] LABS: Cocaine Screen,Urine Negative ng/ml (<300); Methadone Screen,Urine Negative ng/ml (<300)
[2023-07-29 19:34] LABS: Opiate Screen,Urine Negative ng/ml (<300)
[2023-07-29 19:35] LABS: Phencyclidine Screen,Urine Negative ng/ml (<25)
[2023-08-04 01:08] LABS: Amphetamine Positive (.); Amphetamine (GC/MS) >3000 ng/mL (Cutoff=500); Amphetamines Positive (.); Methamphetamine Positive (.); Methamphetamine (GC/MS) >3000 ng/mL (Cutoff=500)
[2023-08-05 23:08] LABS: Gabapentin,Urine Negative (.)
[2023-08-09 07:34] LABS: Opiates Negative (Cutoff=100)
== END 2023-07-29 23:59 ==
LOC: LAB.DROPOF 18:14
PROVIDERS: PCP Nurse Practitioner Acute Care; Visit Provider Nurse Practitioner Acute Care
DX: F90.9 Attention-deficit hyperactivity disorder, unspecified type (principal); R82.5 Elevated urine levels of drugs, medicaments and biological substances
CPT/HCPCS: 80307; 80324; 80361; 80365; G0480

== ENCOUNTER 2023-09-22 14:30 | Emergency (ER) | payer OTHER, SELFPAY ==
[2023-09-22 14:31] VITALS: BP 162/112; PULSE 116; RESP 18; TEMP 36.8; O2SAT 96; BMI 22.0
--- NOTE | 2023-09-22 14:44 | HMH.EDGENADL ---
Discharge Plan Disposition Patient Disposition: Home, Self-Care Condition: Good Prescriptions Prescriptions: No Action lamotrigine [Lamictal] 25 mg tablet 25 mg PO DAILY Qty: 60 0RF Rx Instructions: Take one tablet daily for three days, then 2 tablets daily. prazosin 1 mg capsule 1 mg PO HS Qty: 30 2RF lisinopril 20 mg tablet 20 mg PO BID Qty: 60 3RF amlodipine [Norvasc] 5 mg tablet 5 mg PO DAILY Qty: 30 3RF aspirin [Adult Low Dose Aspirin] 81 mg tablet,delayed release (DR/EC) 81 mg PO DAILY Qty: 90 2RF Referrals Follow up/Referrals: Provider,Referral, MD [Primary Care Provider] - See instructions Activity Restrictions/Add. Instructions Additional Instructions/Restrictions: May shower as normal with soap and water. Change wound packing daily and keep covered with gauze to protect the wound. Return to the emergency department or PCP as needed for any signs of worsening pain drainage or as needed Clinical Impressions Clinical Impression: Abscess of skin or subcutaneous tissue Qualifiers: Site of cutaneous abscess: unspecified site Qualified Code(s): L02.91 - Cutaneous abscess, unspecified Discharge ED Provider: Karlos Pérez General Adult HPI <MARIANNE Balderas - Last Filed: 09/22/23 15:37> General Chief complaint: Wound/Laceration Stated complaint: possible wound on Rt leg, swelling, pain Time Seen by Provider: 09/22/23 14:44 History of Present Illness HPI narrative: Patient presents for an area on his right distal anterior thigh that he thinks is an abscess or spider bite. Patient denies trauma. Patient has no chronic medical problems. Patient denies fever chills hemoptysis hematochezia melena nausea vomit diarrhea. Related Data Previous Rx's Medication Instructions Recorded amlodipine 5 mg tablet (Norvasc) 5 mg PO DAILY #30 tabs 07/09/23 aspirin 81 mg tablet,delayed 81 mg PO DAILY #90 tabs 07/09/23 release (Adult Low Dose Aspirin) lisinopril 20 mg tablet 20 mg PO BID Hypertension #60 tabs 07/09/23 lamotrigine 25 mg tablet (Lamictal) 25 mg PO DAILY #60 tabs 07/29/23 prazosin 1 mg capsule 1 mg PO HS #30 caps 07/29/23 Allergies Allergy/AdvReac Type Severity Reaction Status Date / Time codeine Allergy Verified 07/30/23 09:09 Penicillins Allergy Verified 07/30/23 09:09 PFSH <MARIANNE Balderas - Last Filed: 09/22/23 15:37> [facility] Disclaimer: The information contained in this section may have been updated after the patient was seen, as this information can be updated by other users. Social History Smoking Status: Current every day smoker alcohol intake: never substance use type: former substance user current occupational status: other Travel in the last 8 weeks: None <MARIANNE Balderas - Last Filed: 09/22/23 15:37> ROS Obtained: Yes Systems reviewed as appropriate & no additional complaints except as documented Physical Exam <MARIANNE Balderas - Last Filed: 09/22/23 15:37> General General appearance: alert and in no apparent distress Respiratory Respiratory exam: Present normal lung sounds bilaterally; Absent respiratory distress Cardiovascular Cardiovascular exam: Present regular rate and normal rhythm Extremities Exam Extremities exam: Present normal inspection and full ROM Neurological Exam Neurological exam: Present alert and oriented X3 Skin Skin exam: Present other (Patient has a 3 cm x 3 cm area of erythema and induration with a central area of eschar at the very distal end of his anterior right thigh in the midline. There is an area of fluctuance but it is not spontaneously draining. Is exquisitely tender to palpation. The remainder of the skin exam is pin) Medical Decision Making <MARIANNE Balderas - Last Filed: 09/22/23 15:37> Medical Records Medical records reviewed: Yes I reviewed the patient's medical records. Lee Inquiry Pt receiving controlled substance: No Vital Signs: 09/22/23 14:31 09/22/23 16:00 09/22/23 16:21 Temperature 98.2 F 98.2 F Temperature Source Oral Pulse Rate 88 Pulse Rate [Radial] 116 H Respiratory Rate 18 16 Blood Pressure 159/115 H 161/111 H Blood Pressure [Right Arm] 162/112 H Blood Pressure Mean [Right Arm] 128 Blood Pressure Source [Right Arm] Automatic Cuff Blood Pressure Position [Right Arm] Sitting 02 Sat by Pulse Oximetry 96 Oxygen Delivery Method Room Air Room Air Lab Data Lab results reviewed: Yes I reviewed the patient's lab results. Lab Results 09/22/23 15:10: WBC 9.3, RBC 5.71, Hgb 18.2 H, Hct 54.4 H, MCV 95.2 H, MCH 32.0 H, MCHC 33.6, RDW 12.9, Plt Count 371, MPV 7.9, Neut % (Auto) 71.9, Lymph % (Auto) 20.0, Cloud % (Auto) 4.2, Eos % (Auto) 3.1, Baso % (Auto) 0.8, Neut # (Auto) 6.7, Lymph # (Auto) 1.9, Cloud # (Auto) 0.4, Eos # (Auto) 0.3, Baso # (Auto) 0.1, Sodium 138, Potassium 3.8, Chloride 104, Carbon Dioxide 26, Anion Gap 11.8, BUN 14, Creatinine 0.90, Estimated Creat Clear 105, Estimated GFR 91, Est GFR ( Amer) 110, Glucose 142 H, Calcium 9.3 09/22/23 15:10 09/22/23 15:10 Orders (Tests/Meds): ED MEDICATIONS Discontinued Medications Generic Name Dose Route Start Last Admin Trade Name Freq PRN Reason Stop Dose Admin Acetaminophen 1,000 mg 09/22/23 15:25 09/22/23 15:45 Acetaminophen 500mg Tab PO 09/22/23 15:26 1,000 mg ONCE ONE Administration Dalbavancin 1,500 mg/ Dextrose 250 mls @ 500 mls/hr 09/22/23 14:57 09/22/23 15:44 IV 09/22/23 14:58 500 mls/hr ONCE ONE Administration Ketorolac Tromethamine 30 mg 09/22/23 15:25 09/22/23 15:47 Ketorolac 30mg/Ml Vial IV 09/22/23 15:26 Not Given ONCE ONE Lidocaine HCl 20 ml 09/22/23 14:57 09/22/23 15:36 Lidocaine 1% 20ml Mdv SQ 09/22/23 14:58 20 ml ONCE ONE Administration ORDERS Category Date Time Status BMP [Basic Metabolic Panel] Stat Lab 09/22/23 15:10 Completed CBC w/Auto Diff [Complete Blood Count Auto Diff] Stat Lab 09/22/23 15:10 Completed Abscess Culture & Gram Stain Routine Micro 09/22/23 15:20 Results Medical Decision Narrative: In summary patient is a 7-year-old male who presents to the emergency department for evaluation of abscess right anterior thigh. Patient is stable upon arrival, afebrile. Physical exam shows a 3 x 3 area of induration and erythema with a central area of eschar and fluctuance but no spontaneous drainage in the distal anterior right thigh in the midline.. Differential diagnosis includes foreign furuncle versus simple abscess. Initial workup will be conducted with hematologic labs wound culture. Initial interventions include incision and drainage with 11 blade and 1.5 g of Dalvance IV. Initial workup reviewed by me shows that his hematologic labs are nonactionable. Given this patient is appropriate for discharge with follow-up with his PCP or return to ER as needed for worsening signs symptoms or concerns. <Ascencion Dacosta, DO - Last Filed: 09/23/23 15:38> Vital Signs: 09/22/23 14:31 09/22/23 16:00 09/22/23 16:21 Temperature 98.2 F 98.2 F Temperature Source Oral Pulse Rate 88 Pulse Rate [Radial] 116 H Respiratory Rate 18 16 Blood Pressure 159/115 H 161/111 H Blood Pressure [Right Arm] 162/112 H Blood Pressure Mean [Right Arm] 128 Blood Pressure Source [Right Arm] Automatic Cuff Blood Pressure Position [Right Arm] Sitting 02 Sat by Pulse Oximetry 96 Oxygen Delivery Method Room Air Room Air Lab Data Lab Results 09/22/23 15:10: WBC 9.3, RBC 5.71, Hgb 18.2 H, Hct 54.4 H, MCV 95.2 H, MCH 32.0 H, MCHC 33.6, RDW 12.9, Plt Count 371, MPV 7.9, Neut % (Auto) 71.9, Lymph % (Auto) 20.0, Cloud % (Auto) 4.2, Eos % (Auto) 3.1, Baso % (Auto) 0.8, Neut # (Auto) 6.7, Lymph # (Auto) 1.9, Cloud # (Auto) 0.4, Eos # (Auto) 0.3, Baso # (Auto) 0.1, Sodium 138, Potassium 3.8, Chloride 104, Carbon Dioxide 26, Anion Gap 11.8, BUN 14, Creatinine 0.90, Estimated Creat Clear 105, Estimated GFR 91, Est GFR ( Amer) 110, Glucose 142 H, Calcium 9.3 Orders (Tests/Meds): ED MEDICATIONS Discontinued Medications Generic Name Dose Route Start Last Admin Trade Name Natalie PRN Reason Stop Dose Admin Acetaminophen 1,000 mg 09/22/23 15:25 09/22/23 15:45 Acetaminophen 500mg Tab PO 09/22/23 15:26 1,000 mg ONCE ONE Administration Dalbavancin 1,500 mg/ Dextrose 250 mls @ 500 mls/hr 09/22/23 14:57 09/22/23 15:44 IV 09/22/23 14:58 500 mls/hr ONCE ONE Administration Ketorolac Tromethamine 30 mg 09/22/23 15:25 09/22/23 15:47 Ketorolac 30mg/Ml Vial IV 09/22/23 15:26 Not Given ONCE ONE Lidocaine HCl 20 ml 09/22/23 14:57 09/22/23 15:36 Lidocaine 1% 20ml Mdv SQ 09/22/23 14:58 20 ml ONCE ONE Administration ORDERS Category Date Time Status BMP [Basic Metabolic Panel] Stat Lab 09/22/23 15:10 Completed CBC w/Auto Diff [Complete Blood Count Auto Diff] Stat Lab 09/22/23 15:10 Completed Abscess Culture & Gram Stain Routine Micro 09/22/23 15:20 Results Medical Decision Narrative: In summary patient is a 7-year-old male who presents to the emergency department for evaluation of abscess right anterior thigh. Patient is stable upon arrival, afebrile. Physical exam shows a 3 x 3 area of induration and erythema with a central area of eschar and fluctuance but no spontaneous drainage in the distal anterior right thigh in the midline.. Differential diagnosis includes foreign furuncle versus simple abscess. Initial workup will be conducted with hematologic labs wound culture. Initial interventions include incision and drainage with 11 blade and 1.5 g of Dalvance IV. Initial workup reviewed by me shows that his hematologic labs are nonactionable. Given this patient is appropriate for discharge with follow-up with his PCP or return to ER as needed for worsening signs symptoms or concerns. I was consulted by the RASHMI, and we discussed the complexity of the problems being addressed. I approved the treatment and management plan for this patient's care in the Emergency Department, thus performing a substantive portion of the medical decision making. Ascencion Dacosta, DO Procedures <MARIANNE Balderas - Last Filed: 09/22/23 15:37> Abscess I/D Site: lower extremity Side (if applicable): right (Anterior distal thigh) Local Anesthetic: lidocaine 1% Amount of anesthesia used (mL): 20 Technique: incised with #11 blade Amount of fluid expressed (mL): 3 Irrigation: Yes Packing used?: plain Critical Care <MRAIANNE Balderas - Last Filed: 09/22/23 15:37> Critical Care Time Critical Care Time: No
--- NOTE | 2023-09-22 15:24 | PC.NURSE ---
Pharmacy called related to Aliyah.
[2023-09-22 15:27] LABS: Chloride 104 mmol/L (98-107); Potassium 3.8 mmoL/L (3.5-5.1); Sodium 138 mmol/L (136-145)
[2023-09-22 15:30] LABS: Basophils # 0.1 K/mm3 (0-0.2); Basophils % 0.8 % (0.1-2.0); Blood Urea Nitrogen 14 mg/dl (9-20); Creatinine Clearance Estimated 105 mL/min (50-200); Eosinophils # 0.3 K/mm3 (0.0-0.4); Eosinophils % 3.1 % (0.1-12.0); Estimated Glomerular Filt Rate 91 ml/min (>60); GFR (African American) 110 ML/MIN (>60); Hematocrit 54.4 % (42.0-52.0); Lymphocytes # 1.9 K/mm3 (0.7-4.5); Mean Corpuscular HGB Conc 33.6 g/dL (31.8-35.4); Mean Corpuscular Volume 95.2 fl (80-94); Mean Platelet Volume 7.9 fl (7.4-10.4); Monocytes # 0.4 K/mm3 (0.1-1.0); Monocytes % 4.2 % (1.7-9.3); Neutrophils # 6.7 K/mm3 (1.8-7.8); Neutrophils % 71.9 % (37.0-80.0); Platelet Count 371 K/mm3 (142-424); Red Blood Count 5.71 M/mm3 (4.60-6.20); Red Cell Distribution Width 12.9 % (11.5-17.5); White Blood Count 9.3 K/mm3 (4.8-10.8)
[2023-09-22 15:31] LABS: Anion Gap 11.8 mEq/L (5-15); Calcium 9.3 mg/dl (8.4-10.2); Carbon Dioxide 26 mmol/L (22.0-30.0); Glucose 142 mg/dl (74-100)
[2023-09-22] MEDS: LIDOCAINE 1% 20ML MDV 20 ML SQ (15:36)
[2023-09-22 15:39] LABS: Hemoglobin 18.2 g/dL (14.1-18.0)
[2023-09-22] MEDS: DALBAVANCIN HCL 1,500 MG in DEXTROSE 5 % IN WATER 250 ML 500 MG IV (15:44)
[2023-09-22] MEDS: ACETAMINOPHEN 500MG TAB 1000 MG PO (15:45)
[2023-09-22 16:00] VITALS: BP 159/115
[2023-09-22 16:21] VITALS: BP 161/111; PULSE 88; RESP 16; TEMP 36.8; O2SAT 98
--- NOTE | 2023-09-26 08:30 | PC.NURSE ---
wound culture discussed with , pt was given willowce in ER, NTD
== END 2023-09-22 16:23 | disposition home or self-care (01) ==
PROVIDERS: Physician Assistant; Emergency Provider Emergency Medicine
DX: L02.415 Cutaneous abscess of right lower limb (principal); F17.200 Nicotine dependence, unspecified, uncomplicated
CPT/HCPCS: 10060; 80048; 85025; 87070; 87205; 96374; 96375; 99284; J0875

== ENCOUNTER 2023-11-10 12:20 | Emergency (ER) | payer OTHER, SELFPAY ==
[2023-11-10 12:21] VITALS: BP 153/103; PULSE 118; RESP 20; TEMP 37.2; O2SAT 98; BMI 23.7
--- NOTE | 2023-11-10 12:39 | PC.NURSE ---
pt refused covid/flu swab at this time
--- NOTE | 2023-11-10 12:41 | PC.NURSE ---
in room talking with patient at this time.
--- NOTE | 2023-11-10 12:45 | HMH.EDGENADL ---
Discharge Plan Disposition Patient Disposition: Home, Self-Care Condition: Good Prescriptions Prescriptions: No Action lamotrigine [Lamictal] 25 mg tablet 25 mg PO DAILY Qty: 60 0RF Rx Instructions: Take one tablet daily for three days, then 2 tablets daily. prazosin 1 mg capsule 1 mg PO HS Qty: 30 2RF lisinopril 20 mg tablet 20 mg PO BID Qty: 60 3RF amlodipine [Norvasc] 5 mg tablet 5 mg PO DAILY Qty: 30 3RF aspirin [Adult Low Dose Aspirin] 81 mg tablet,delayed release (DR/EC) 81 mg PO DAILY Qty: 90 2RF Referrals Follow up/Referrals: Provider,Referral, MD [Primary Care Provider] - See instructions Activity Restrictions/Add. Instructions Additional Instructions/Restrictions: Please refrain from drug use. Return to the emergency department for new or worsening symptoms. Follow-up with your primary care provider. Clinical Impressions Clinical Impression: Polysubstance abuse, Headache Instructions Patient Instructions: DI for Headache Discharge ED Provider: Malissa Herrera General Adult HPI General Chief complaint: Headache Stated complaint: QUINONEZ, no taste, stomach pain Time Seen by Provider: 11/10/23 12:27 History of Present Illness HPI narrative: This patient is a 48-year-old male with history of polysubstance abuse presenting with concern for headache, dehydration, and fentanyl withdrawals. Patient states that he thinks he is withdrawing from fentanyl because he has been having headaches, chills, nausea, congestion, and stomach upset. He states has not been eating or drinking in 4 days. He states he came here because he wanted to get on dehydrated and care his headache. He notes he uses a lot of different drugs every which way. He does not further elaborate on history. Related Data Previous Rx's Medication Instructions Recorded amlodipine 5 mg tablet (Norvasc) 5 mg PO DAILY #30 tabs 07/09/23 aspirin 81 mg tablet,delayed 81 mg PO DAILY #90 tabs 07/09/23 release (Adult Low Dose Aspirin) lisinopril 20 mg tablet 20 mg PO BID Hypertension #60 tabs 07/09/23 lamotrigine 25 mg tablet (Lamictal) 25 mg PO DAILY #60 tabs 07/29/23 prazosin 1 mg capsule 1 mg PO HS #30 caps 07/29/23 Allergies Allergy/AdvReac Type Severity Reaction Status Date / Time codeine Allergy Verified 07/30/23 09:09 Penicillins Allergy Verified 07/30/23 09:09 [facility] Disclaimer: The information contained in this section may have been updated after the patient was seen, as this information can be updated by other users. Social History Smoking Status: Current every day smoker alcohol intake: never substance use type: former substance user current occupational status: other Travel in the last 8 weeks: None ROS Obtained: Yes All systems reviewed & no additional complaints except as documented Physical Exam General General appearance: alert and in no apparent distress Head Head exam: atraumatic and normocephalic Eye Eye exam: Present normal appearance, PERRL and EOMI ENT ENT exam: Present normal exam, normal oropharynx, mucous membranes moist and normal external ear exam Neck Neck exam: Present normal inspection, full ROM and trachea midline; Absent tenderness Chest Chest inspection: Present normal inspection and symmetric chest wall rise; Absent tenderness Respiratory Respiratory exam: Present normal lung sounds bilaterally; Absent respiratory distress, wheezes, stridor or accessory muscle use Cardiovascular Cardiovascular exam: Present normal rhythm and tachycardia Abdominal Exam Abdominal exam: Present soft; Absent distention, tenderness or guarding Extremities Exam Extremities exam: Present normal inspection, full ROM and normal capillary refill; Absent tenderness or edema Back Exam Back exam: Present normal inspection and full ROM; Absent tenderness Neurological Exam Neurological exam: Present alert, oriented X3, CN II-XII intact and normal gait; Absent motor sensory deficit Psychiatric Psychiatric exam: Present normal affect and normal mood Skin Skin exam: Present warm and dry Medical Decision Making Medical Records Medical records reviewed: Yes I reviewed the patient's medical records. Lee Inquiry Pt receiving controlled substance: No Vital Signs: 11/10/23 12:21 11/10/23 13:47 Temperature 98.9 F 98.0 F Temperature Source Oral Pulse Rate 70 Pulse Rate [Right] 118 H Respiratory Rate 20 20 Blood Pressure 130/70 Blood Pressure [Right Arm] 153/103 H Blood Pressure Mean [Right Arm] 119 Blood Pressure Source [Right Arm] Automatic Cuff 02 Sat by Pulse Oximetry 98 Oxygen Delivery Method Room Air Room Air Lab Data Lab results reviewed: Yes I reviewed the patient's lab results. Orders (Tests/Meds): ED MEDICATIONS Discontinued Medications Generic Name Dose Route Start Last Admin Trade Name Freq PRN Reason Stop Dose Admin Acetaminophen 1,000 mg 11/10/23 12:43 11/10/23 12:59 Acetaminophen 500mg Tab PO 11/10/23 12:44 1,000 mg ONCE ONE Administration Ibuprofen 800 mg 11/10/23 12:43 11/10/23 12:59 Ibuprofen 400 Mg Tablet PO 11/10/23 12:44 800 mg ONCE ONE Administration Ondansetron HCl 4 mg 11/10/23 12:43 11/10/23 12:58 Ondansetron 4mg Odt SL 11/10/23 12:44 4 mg ONCE ONE Administration Medical Decision Narrative: In summary, this patient is a 48-year-old male presenting to the Emergency Department for evaluation of headache, nausea, poor appetite, decreased oral intake, and concerned that he is going through fentanyl withdrawals. Differential diagnoses considered include but are not limited to withdrawals, dehydration, viral syndrome, substance abuse, CINDY, migraine. Ruling out the most morbid conditions drove assessment. It should be noted patient's history includes polysubstance abuse which is not at goal therapy. This complicates all aspects of care by increasing patient's risk for morbidity. I reviewed patient's past medical records and noted abscess in the setting of IV drug use in the past as well as previous evaluations for agitation. On exam, the patient is alert and oriented and is conversational. I advised the patient that I would recommend that we obtain lab work to check and screen for infection as well as check his electrolytes and kidney function given that he has not been eating or drinking anything and reportedly 4 days. He declined, stating that he does not want to be stuck. He states that having an IV is painful, so he just wants to get hydrated. I advised that I would recommend IV fluids for hydration given that he has not been eating or drinking, but he declined stating that he again does not want an IV. Patient is of sound mind and has decision-making capacity, so his refusal of IV was respected. He was given oral Tylenol, ibuprofen, and Zofran for symptomatic improvement. He is provided with water and encouraged oral hydration. After Tylenol, ibuprofen, and oral hydration, patient states he is feeling much better. He states that he needs to leave now to go to the cafeteria to get some lunch before it closes. I advised that we did not obtain labs to rule out any new acutely life-threatening pathology, and he expressed understanding agreement states that he is feeling better now. Patient was discharged via patient directed discharge after all questions were answered. Strict return precautions were given as well as instructions for close follow-up. Critical Care Critical Care Time Critical Care Time: No
[2023-11-10] MEDS: ONDANSETRON 4MG ODT 4 MG SL (12:58)
[2023-11-10] MEDS: IBUPROFEN 400 MG TABLET 800 MG PO (12:59)
[2023-11-10] MEDS: ACETAMINOPHEN 500MG TAB 1000 MG PO (12:59)
[2023-11-10 13:47] VITALS: BP 130/70; PULSE 70; RESP 20; TEMP 36.7; O2SAT 98
== END 2023-11-10 13:48 | disposition home or self-care (01) ==
PROVIDERS: Emergency Provider Emergency Medicine
DX: R51.9 Headache, unspecified (principal); F19.10 Other psychoactive substance abuse, uncomplicated; F17.210 Nicotine dependence, cigarettes, uncomplicated; I10 Essential (primary) hypertension
CPT/HCPCS: 99283

== ENCOUNTER 2024-02-25 15:51 | Outpatient (CLI) | payer OTHER, SELFPAY ==
[2024-02-25 18:42] LABS: Basophils # 0.1 K/mm3 (0-0.2); Basophils % 0.5 % (0.1-2.0); Eosinophils # 0.3 K/mm3 (0.0-0.4); Eosinophils % 2.6 % (0.1-12.0); Hematocrit 48.1 % (42.0-52.0); Hemoglobin 15.5 g/dL (14.1-18.0); Lymphocytes # 2.5 K/mm3 (0.7-4.5); Lymphocytes % 21.6 % (10-50); Mean Corpuscular HGB Conc 32.2 g/dL (31.8-35.4); Mean Corpuscular Hemoglobin 30.2 pg (27.0-31.2); Mean Corpuscular Volume 93.9 fl (80-94); Mean Platelet Volume 8.7 fl (7.4-10.4); Monocytes # 0.6 K/mm3 (0.1-1.0); Monocytes % 5.5 % (1.7-9.3); Neutrophils # 7.9 K/mm3 (1.8-7.8); Neutrophils % 69.7 % (37.0-80.0); Platelet Count 444 K/mm3 (142-424); Red Blood Count 5.12 M/mm3 (4.60-6.20); Red Cell Distribution Width 14.7 % (11.5-17.5); White Blood Count 11.4 K/mm3 (4.8-10.8)
[2024-02-25 19:33] LABS: Alanine Aminotransferase 20 U/L (12-78); Albumin Level 4.1 g/dl (3.5-5.0); Albumin/Globulin Ratio 1.2 (1.1-1.8); Alkaline Phosphatase 79 U/L (38-126); Anion Gap 11.6 mEq/L (5-15); Aspartate Amino Transferase 33 U/L (17-59); Bilirubin,Total 0.4 mg/dl (0.2-1.3); Blood Urea Nitrogen 15 mg/dl (9-20); Calcium 9.5 mg/dl (8.4-10.2); Carbon Dioxide 28 mmol/L (22.0-30.0); Chloride 105 mmol/L (98-107); Cholesterol 175 mg/dl (140-200); Estimated Glomerular Filt Rate 91 ml/min (>60); GFR (African American) 110 ML/MIN (>60); Globulin 3.4 g/dL (1.3-3.2); Glucose 75 mg/dl (74-100); Potassium 4.6 mmoL/L (3.5-5.1); Sodium 140 mmol/L (136-145); Total Protein,Serum 7.5 g/dl (6.3-8.2)
[2024-02-25 20:07] LABS: Prostate Specific Ag Screen 0.4 ng/ml (0.0-4.0)
[2024-02-25 21:37] LABS: Hemoglobin A1C 5.3 % (4.0-6.0)
[2024-03-04 01:08] LABS: Free Testosterone (Direct) 8.1 pg/mL (6.8-21.5); Testosterone, Total, LC/MS 639.5 ng/dL (264.0-916.0)
== END 2024-02-25 23:59 | disposition home or self-care (01) ==
LOC: LAB.DROPOF 02-27 18:48
PROVIDERS: PCP Family Medicine; Visit Provider Family Medicine
DX: Z00.00 Encounter for general adult medical examination without abnormal findings (principal); N52.9 Male erectile dysfunction, unspecified
CPT/HCPCS: 80053; 82465; 83036; 85025; G0103

== ENCOUNTER 2024-11-27 06:52 | Emergency (ER) | payer OTHER, SELFPAY ==
[2024-11-27] VITALS (7 sets, daily range): BP systolic 157–176; BP diastolic 104–123; PULSE 110–124; RESP 20; TEMP 36.5–36.8; O2SAT 97–99; BMI 24.7
--- NOTE | 2024-11-27 07:47 | ED_ITS ---
Discharge Plan Disposition Patient Disposition: Home, Self-Care Prescriptions Prescriptions: No Action buprenorphine-naloxone 8-2 mg film 3 film sublingual DAILY Patient Comments: PLACE 3 FILMS UNDER THE TONGUE AND ALLOW TO DISSOLVE 1 TIME EACH DAY lisinopril 20 mg tablet 20 mg PO BID Qty: 60 7RF tadalafil [Cialis] 20 mg tablet 20 mg PO DAILY PRN (Reason: sexual activity) Qty: 10 0RF Rx Instructions: administer approximately 30min before sexual activity; do not use more than 1 dose per 24hrs aspirin [Adult Low Dose Aspirin] 81 mg tablet,delayed release (DR/EC) 81 mg PO DAILY Qty: 90 2RF Referrals Follow up/Referrals: Provider,Referral, MD [Primary Care Provider] - See instructions Activity Restrictions/Add. Instructions Additional Instructions/Restrictions: You have evidence of early very mild rhabdomyolysis/mild injury to your muscle likely secondary to methamphetamine use. Please stop using methamphetamines and drink plenty of fluids until your urine is clear. Your muscle enzyme is not high enough to warrant admission and IV fluids and your kidney function is normal if you continue to have dark tea colored urine please return to the emergency department or if you have other concerns please return. Clinical Impressions Clinical Impression: Polysubstance abuse, Flank pain, Injury of muscle Instructions Patient Instructions: DI for Skin Abscess Print Language Print Language: Mohawk Discharge ED Provider: Sherri Montemayor General Adult HPI General Chief complaint: Skin/Abscess/Foreign Body Stated complaint: Pain on both side waist line area Time Seen by Provider: 11/27/24 07:10 Mode of Arrival: Ambulatory Source of Information: Patient Description of Symptoms (Recalled from ER Triage Doc. by RN): Pt states he is having pain to his skin on both sides of his abdomen. Pt reports this has been ongoing for approx 1 day. Pt admits to poly substance abuse. History of Present Illness HPI narrative: Patient is a 49-year-old male who is recently incarcerated has only been out for a few days and has been actively using meth amphetamines and marijuana who presents today after not sleeping for several days has bilateral flank pain. Denies any hematuria denies any fevers denies any back pain denies any neurologic symptoms denies any significant abdominal pain. Related Data Home Medications ?Medication ?Instructions ?Recorded ?Confirmed buprenorphine 8 mg-naloxone 2 mg 3 film sublingual DAILY 01/22/24 02/25/24 sublingual film Previous Rx's ?Medication ?Instructions ?Recorded aspirin 81 mg tablet,delayed 81 mg PO DAILY #90 tabs 07/09/23 release (Adult Low Dose Aspirin) lisinopril 20 mg tablet 20 mg PO BID Hypertension #60 tabs 01/22/24 tadalafil 20 mg tablet (Cialis) 20 mg PO DAILY PRN sexual activity 02/25/24 #10 tabs Allergies Allergy/AdvReac Type Severity Reaction Status Date / Time codeine Allergy Verified 02/25/24 14:29 Penicillins Allergy Verified 02/25/24 14:29 [facility] Disclaimer: The information contained in this section may have been updated after the patient was seen, as this information can be updated by other users. Medical History (Updated 11/27/24 @ 10:17 by Sherri Montemayor MD) Abscess of skin or subcutaneous tissue Bronchitis Cellulitis Social History Smoking Status: Current every day smoker alcohol intake: never substance use type: former substance user current occupational status: other Travel in the last 8 weeks?: None Have you lived/traveled outside [place] in past 30 days?: No Contact w/someone who lives/traveled outside [place] past 30 days?: No Exposure to someone with infectious disease in past 14 days?: No Do you have a fever (greater than 100.4 F or 38 C)?: No Have you tested positive for COVID-19?: No Exposed to someone with COVID-19 in past 14 days?: No Do you have a sore throat?: No Do you have a cough?: No Do you have any weakness?: No Do you have any diarrhea?: No Are you experiencing any unusual bleeding?: No Do you have any muscle aches/pain?: No Do you have any abdominal pain?: No Are you experiencing loss of taste or smell?: No Other Medical History Have you received the Flu Vaccine for this season: No Have you received the Pneumonia Vaccine: No ROS Obtained: Yes All systems reviewed & no additional complaints except as documented Physical Exam General General appearance: other (Actively tweaking associated with his methamphetamine use smelled strongly of marijuana) Respiratory Respiratory exam: Present normal lung sounds bilaterally; Absent respiratory distress Cardiovascular Cardiovascular exam: Present regular rate and normal rhythm Abdominal Exam Abdominal exam: Present soft; Absent distention or tenderness Back Exam Back exam: Present other (Bilateral lower extremity neurologic exam normal); Absent CVA tenderness (R) or CVA tenderness (L) Neurological Exam Neurological exam: Present alert and oriented X3 Medical Decision Making Medical Records Screening: Per USPSTF and CDC recommendations, given the prevalence of disease in our region, it is our hospital?s policy to screen for HIV and viral Hepatitis for all patients aged 18 and over and those with ongoing risk factors. Lee Inquiry Pt receiving controlled substance: No Vital Signs: 11/27/24 07:00 11/27/24 07:01 11/27/24 07:52 Temperature 97.7 F Temperature Source Oral Pulse Rate 117 H 123 H Pulse Rate [Left] 117 H Respiratory Rate 20 Blood Pressure 161/119 H 161/119 H Blood Pressure [Right Arm] 161/123 H Blood Pressure Mean [Right Arm] 135 Blood Pressure Source [Right Arm] Automatic Cuff Blood Pressure Position [Right Arm] Sitting 02 Sat by Pulse Oximetry 98 97 97 Oxygen Delivery Method Room Air Room Air Room Air 11/27/24 08:00 11/27/24 08:31 11/27/24 09:00 Temperature Temperature Source Pulse Rate 120 H 124 H 110 H Pulse Rate [Left] Respiratory Rate Blood Pressure 166/118 H 176/104 H 157/116 H Blood Pressure [Right Arm] Blood Pressure Mean [Right Arm] Blood Pressure Source [Right Arm] Blood Pressure Position [Right Arm] 02 Sat by Pulse Oximetry 98 98 99 Oxygen Delivery Method Room Air Room Air Room Air Lab Data Lab results reviewed: Yes I reviewed the patient's lab results. Lab Results 11/27/24 07:55: Urine Color Yellow, Urine Appearance Clear, Urine pH 6.0, Ur Specific [place] 1.025, Urine Protein Negative, Urine Glucose (UA) Negative, Urine Ketones Negative, Urine Blood 1+ A, Urine Nitrate Negative, Urine Bilirubin Negative, Urine Urobilinogen 0.2, Ur Leukocyte Esterase Negative, Urine RBC 5-10, Urine WBC None, Ur Squamous Epith Cells Occasional, Urine Bacteria Trace 11/27/24 09:15: WBC 15.9 H, RBC 5.21, Hgb 16.4, Hct 46.8, MCV 89.8, MCH 31.5 H, MCHC 35.0, RDW 12.7, Plt Count 285, MPV 9.7, Neut % (Auto) 78.7, Lymph % (Auto) 13.1, Tama % (Auto) 6.7, Eos % (Auto) 0.8, Baso % (Auto) 0.4, Neut # (Auto) 12.5 H, Lymph # (Auto) 2.1, Tama # (Auto) 1.1 H, Eos # (Auto) 0.1, Baso # (Auto) 0.1, Sodium 138, Potassium 4.3, Chloride 103, Carbon Dioxide 26, Anion Gap 13.3, BUN 28 H, Creatinine 0.90, Estimated Creat Clear 112, Estimated GFR 90, Est GFR ( Amer) 109, Glucose 104 H, Calcium 10.0, Total Bilirubin 1.0, AST 65 H, ALT 31, Alkaline Phosphatase 91, Total Creatine Kinase 1144 H*, Total Protein 8.4 H, Albumin 5.2 H, Globulin 3.2, Albumin/Globulin Ratio 1.6 11/27/24 09:15 11/27/24 09:15 Orders (Tests/Meds): ED MEDICATIONS Discontinued Medications Generic Name Dose Route Start Last Admin Trade Name Freq PRN Reason Stop Dose Admin Sodium Chloride 1,000 mls @ 999 mls/hr 11/27/24 07:45 Sod Chlor 0.9% 1000ml Bag IV 11/27/24 08:45 .[id number] [facility] ORDERS Category Date Time Status CBC w/Auto Diff [Complete Blood Count Auto Diff] Stat Lab 11/27/24 09:15 Completed CK [Creatine Kinase] Stat Lab 11/27/24 09:15 Completed CMP [Comprehensive Metabolic Panel] Stat Lab 11/27/24 09:15 Completed HIV Combo Stat Lab 11/27/24 09:15 Received Hepatitis C Ab Qual. W/ RFX Stat Lab 11/27/24 09:15 Received UA [Urinalysis and Microscopic] Stat Lab 11/27/24 07:55 Completed Medical Decision Narrative: Patient with above history and physical no signs or symptoms of sepsis or concern for iliopsoas abscesses or spinal abscess in this patient that admits to doing drugs. He is actively intoxicated having a hard time sleeping has bilateral flank pain leading my differential is just musculoskeletal pain but certainly could have rhabdomyolysis with his presentation. I do not suspect any intra-abdominal pathology kidney stones etc. IV fluids and basic labs have been sent will reassess shortly. Reassessment 1018 patient remains very stable CK was very mildly elevated above thousand but not high enough to definitively diagnose rhabdomyolysis likely early rhabdo versus mild muscle injury secondary to methamphetamine use. He is been advised to drink fluids very heavily and his kidney function is normal at the moment. Of note patient was trying to roll a joint while in the emergency department and police intervened from that standpoint. Critical Care Critical Care Time Critical Care Time: No
[2024-11-27 08:09] LABS: Microscopic, Urine URINE MICROSCOPIC (MICROSCOPIC)
[2024-11-27 08:16] LABS: Appearance,Urine CLEAR (Clear); Bilirubin,Urine Negative (Negative); Blood, Urine 1+ (Negative); Color,Urine YELLOW (Yellow); Glucose,Urine (UA) Negative (Negative); Ketones,Urine Negative (Negative); Leukocyte Esterase,Urine Negative (Negative); Nitrate,Urine Negative (Negative); Protein,Urine Negative (Negative); Specific Gravity, Urine 1.025 (1.005-1.030); Urobilinogen,Urine 0.2 EU/dl (0.2)
[2024-11-27 08:55] LABS: Bacteria,Urine Trace /lpf; Squamous Epithelial Cell,Urine Occasional #/hpf (0-5)
[2024-11-27 09:23] LABS: Basophils # 0.1 K/mm3 (0-0.2); Basophils % 0.4 % (0.1-2.0); Eosinophils # 0.1 Kmm3 (0.0-0.4); Eosinophils % 0.8 % (0.1-12.0); Hematocrit 46.8 % (42.0-52.0); Hemoglobin 16.4 g/dL (14.1-18.0); Immature Granulocytes # 0.05 10^3uL; Immature Granulocytes % 0.3 %; Lymphocytes # 2.1 K/mm3 (0.7-4.5); Lymphocytes % 13.1 % (10-50); Mean Corpuscular Hemoglobin 31.5 pg (27.0-31.2); Mean Corpuscular Volume 89.8 fl (80-94); Mean Platelet Volume 9.7 fl (7.4-10.4); Monocytes # 1.1 K/mm3 (0.1-1.0); Monocytes % 6.7 % (1.7-9.3); Neutrophils # 12.5 K/mm3 (1.8-7.8); Neutrophils % 78.7 % (37.0-80.0); Nucleated Red Blood Cells # 0 10^3/uL; Nucleated Red Blood Cells % 0 %; Platelet Count 285 K/mm3 (142-424); Red Blood Count 5.21 M/mm3 (4.60-6.20); Red Cell Distribution Width 12.7 % (11.5-17.5); Red Cell Distribution Width-SD 41.3 fL; White Blood Count 15.9 K/mm3 (4.8-10.8)
[2024-11-27 09:27] LABS: Albumin Level 5.2 g/dl (3.5-5.0); Chloride 103 mmol/L (98-107); Sodium 138 mmol/L (136-145)
[2024-11-27 09:28] LABS: Potassium 4.3 mmoL/L (3.5-5.1)
[2024-11-27 09:30] LABS: Alanine Aminotransferase 31 U/L (12-78); Albumin/Globulin Ratio 1.6 (1.1-1.8); Alkaline Phosphatase 91 U/L (38-126); Anion Gap 13.3 mEq/L (5-15); Aspartate Amino Transferase 65 U/L (17-59); Blood Urea Nitrogen 28 mg/dl (9-20); Carbon Dioxide 26 mmol/L (22.0-30.0); Creatine Kinase 1144 U/L (55-170); Creatinine Clearance Estimated 112 mL/min (50-200); Estimated Glomerular Filt Rate 90 ml/min (>60); GFR (African American) 109 ML/MIN (>60); Globulin 3.2 g/dL (1.3-3.2); Glucose 104 mg/dl (74-100); Total Protein,Serum 8.4 g/dl (6.3-8.2)
--- NOTE | 2024-11-27 10:10 | PC.NURSE ---
Nurse reports she found pt with marijuana in room, charge contacted PD
--- NOTE | 2024-11-27 10:13 | PC.NURSE ---
marijuana found in patient room ,PD notified officer coming to dispose of
[2024-11-27 10:28] LABS: HIV Combo NEGATIVE (Negative)
[2024-11-27 10:36] LABS: Hepatitis C Ab Qual. W/ RFX REACTIVE (Negative)
== END 2024-11-27 10:22 | disposition home or self-care (01) ==
PROVIDERS: Emergency Provider Student in an Organized Health Care Education/Training Program
DX: R10.9 Unspecified abdominal pain (principal); F19.129 Other psychoactive substance abuse with intoxication, unspecified; F17.210 Nicotine dependence, cigarettes, uncomplicated; R79.89 Other specified abnormal findings of blood chemistry; M79.18 Myalgia, other site; Z11.59 Encounter for screening for other viral diseases; Z11.4 Encounter for screening for human immunodeficiency virus [HIV]
CPT/HCPCS: 80053; 81001; 82550; 85025; 86803; 87389; 87522; 99284